=== PATIENT | male | born 2000 | race Caucasian/White ===

== ENCOUNTER 2021-06-16 13:02 | Day surgery (SDC) | payer BC ==
[~2021-06-16] VITALS: Ht 177.8 cm; Wt 84.9 kg
--- NOTE | 2021-06-16 15:49 | NUR ---
06/16/21 1550 ELIZABETH FRANCOIS PAIN 2 AT PRESENT. NO NAUSEA. PULSE RUNS LOW- AT TIMES IN MID 40'S. PREOP PULSE RECORDED 51.
--- NOTE | 2021-06-16 16:13 | NUR ---
06/16/21 1612 ELIZABETH FRANCOIS PAIN - PT TEARY/ 07/24. 25MCG GIVEN FENTANYL
== END 2021-06-16 17:15 | disposition home or self-care (01) ==
LOC: ORSCSDS 13:02
PROVIDERS: Orthopaedic Surgery
PROC: 0PST04Z Reposition Right Finger Phalanx with Internal Fixation Device, Open Approach (ICD-10-PCS; principal; 2021-06-16 15:00)
DX: S62.616A Displaced fracture of proximal phalanx of right little finger, initial encounter for closed fracture (principal); Y93.64 Activity, baseball
CPT/HCPCS: A9270; C1713; J0690; J1100; J1885; J2250; J2405; J2704; J2795; J3010; J7120